=== PATIENT | female | born 1985 | race Caucasian/White ===

== ENCOUNTER 2016-11-04 04:30 | Observation (INO) | payer OTHER ==
[~2016-11-04] VITALS: Ht 170.2 cm; Wt 69.4 kg
[2016-11-04] MEDS ORDERED: PREN1SGL25 PO (04:56)
[2016-11-04] MEDS ORDERED: IRON65TA11 PO (04:56)
[2016-11-04 05:15] VITALS: BP 104/65
[2016-11-04] MEDS ORDERED: TERBUTALINE 1 MG/ML VIAL SUBQ ONE ×2 (05:32→06:15)
[2016-11-04] MEDS ORDERED: TERBUTALINE 1 MG/ML VIAL SUBQ SCH (05:40)
[2016-11-04 05:59] LABS: BASOPHILS # (AUTO) 0.1 K/uL (0.00-0.22); BASOPHILS % (AUTO) 0.6 % (0.0-2.0); EOSINOPHILS # (AUTO) 0.1 K/uL (0-0.4); EOSINOPHILS % (AUTO) 1.5 % (0.0-4.0); HEMATOCRIT 32.7 % (36-48); LYMPHOCYTES # (AUTO) 2.7 K/uL (2.5-16.5); LYMPHOCYTES % (AUTO) 30.1 % (20.5-51.1); MEAN CORPUSCULAR HEMOGLOBIN 31 pg (27-31); MEAN CORPUSCULAR HGB CONC 34 g/dL (33-37); MEAN CORPUSCULAR VOLUME 91 fL (80-94); MONOCYTES # (AUTO) 0.6 K/uL (0.8-1.0); MONOCYTES % (AUTO) 6.8 % (1.7-9.3); NEUTROPHILS # (AUTO) 5.4 K/uL (1.8-7.7); PLATELET COUNT (AUTO) 103 K/uL (140-450); RED CELL DISTRIBUTION WIDTH 13.4 % (11.6-13.7); WHITE BLOOD COUNT (AUTO) 8.9 K/uL (4.8-10.8)
[2016-11-04 06:17] LABS: INR 0.9 (0.8-1.2); PARTIAL THROMBOPLASTIN TIME 23.9 secs (22-35.6); PROTHROMBIN TIME 9.6 secs (10.8-13.4)
[2016-11-04 06:40] LABS: APPEARANCE,URINE CLOUDY (CLEAR); BILIRUBIN,URINE NEGATIVE (NEGATIVE); BLOOD, URINE NEGATIVE (NEGATIVE); COLOR,URINE YELLOW (YELLOW); LEUKOCYTE ESTERASE ,URINE NEGATIVE (NEGATIVE); NITRITE, URINE NEGATIVE (NEGATIVE); PH,URINE 7.5 (5.0-9.0); PROTEIN,URINE NEGATIVE (NEGATIVE); UGLUCOSE NEGATIVE (NEGATIVE); UROBILINOGEN,URINE 0.2 EU/dL (0.2 - 1)
[2016-11-04 07:03] LABS: D-DIMER 754 ng/ml (0-400)
[2016-11-04 07:25] LABS: BACTERIA,URINE None Seen /HPF (None Seen); RBC,URINE NONE SEEN /HPF (0-5); SQUAMOUS EPITHELIAL CELL,UR 0-3 (FEW) /LPF (0-3 (FEW)); URINE AMORPHOUS PHOSPHATES 1+ /HPF (None Seen); WBC,URINE 0-5 (RARE) /HPF (0-5)
[2016-11-04 07:51] LABS: FIBRINOGEN > 475 mg/dL (200-400)
[2016-11-04] MEDS ORDERED: BETAMETH ACET/BETAMETH NA PH 30 MG/5 ML VIAL IM ONE ×2 (08:05→20:08)
[2016-11-04] MEDS ORDERED: BETAMETH ACET/BETAMETH NA PH 30 MG/5 ML VIAL IM SCH (08:30)
--- NOTE | 2016-11-04 09:00 | NUR ---
PATIENT HAS BEEN SCREENED AND CATEGORIZED MODERATE NUTRITION RISK. PATIENT WILL BE SEEN WITHIN 3-5 DAYS OF ADMISSION. 11/06/16-11/08/[address]
[2016-11-04] MEDS: TERBUTALINE 2.5 MG TAB PO PRN ×2 (10:05→14:02)
[2016-11-04] MEDS ORDERED: TERBUTALINE 2.5 MG TAB ONE ×3 (10:09→21:04)
[2016-11-04] MEDS ORDERED: ALUMINUM HYD/MAG/SIMETHICONE 30 ML UDC PO PRN (14:10)
[2016-11-04] MEDS ORDERED: ALUMINUM HYD/MAG/SIMETHICONE 30 ML UDC ONE (14:19)
[2016-11-04] MEDS ORDERED: NIFEdipine 10 MG CAPLF ONE ×3 (17:54→18:34)
[2016-11-04] MEDS: NIFEdipine 10 MG CAPLF PO SCH ×2 (18:12→18:30)
[2016-11-04] MEDS ORDERED: NIFEdipine 10 MG CAPLF PO PRN (22:30)
== END 2016-11-04 21:00 | disposition home or self-care (01) ==
LOC: MLD 04:30
PROVIDERS: ADMIT Obstetrics & Gynecology; ATTEND Obstetrics & Gynecology
DX: O26.893 Other specified pregnancy related conditions, third trimester (principal); R12 Heartburn; Z3A.33 33 weeks gestation of pregnancy
CPT/HCPCS: 36415; 51702; 76815; 81001; 85025; 85379; 85384; 85610; 85730; 86886; 86900; 86901; 96372; G0378; J0702; J3105; Q0092

== ENCOUNTER 2016-12-12 05:50 | Observation (INO) | payer OTHER ==
[~2016-12-12] VITALS: Ht 170.2 cm; Wt 71.7 kg
[~2016-12-12 05:50] MED LIST: IRON65TA11 PO; PREN1SGL25 PO
[2016-12-12] MEDS ORDERED: ALUMINUM HYD/MAG/SIMETHICONE 30 ML UDC PO PRN (06:35)
[2016-12-12] MEDS ORDERED: FAMOTIDINE 20 MG TAB PO SCH (07:15)
== END 2016-12-12 15:35 | disposition home or self-care (01) ==
LOC: MFCC 05:50
PROVIDERS: ADMIT Obstetrics & Gynecology; ATTEND Obstetrics & Gynecology
DX: Z34.90 Encounter for supervision of normal pregnancy, unspecified, unspecified trimester (principal); Z3A.00 Weeks of gestation of pregnancy not specified
CPT/HCPCS: 76815; G0378; Q0092

== ENCOUNTER 2016-12-13 19:03 | Inpatient (IN) | payer OTHER ==
[~2016-12-13] VITALS: Ht 170.2 cm; Wt 71.7 kg
[2016-12-13] MEDS ORDERED: OXYTOCIN 20 UNITS/LR PREMIX 1,000 ML IV SCH (19:47)
[2016-12-13] MEDS ORDERED: NALBUPHINE 10 MG/ML AMP IVP PRN (19:50)
[2016-12-13] MEDS ORDERED: LACTATED RINGERS 1,000 ML IV SCH (20:20)
[2016-12-13 20:46] LABS: BASOPHILS % (AUTO) 0.7 % (0.0-2.0); EOSINOPHILS # (AUTO) 0.1 K/uL (0-0.4); EOSINOPHILS % (AUTO) 0.9 % (0.0-4.0); HEMATOCRIT 35.6 % (36-48); LYMPHOCYTES # (AUTO) 1.3 K/uL (2.5-16.5); LYMPHOCYTES % (AUTO) 22.7 % (20.5-51.1); MEAN CORPUSCULAR HEMOGLOBIN 31 pg (27-31); MEAN CORPUSCULAR HGB CONC 34 g/dL (33-37); MEAN CORPUSCULAR VOLUME 91 fL (80-94); MONOCYTES # (AUTO) 0.7 K/uL (0.8-1.0); MONOCYTES % (AUTO) 12.3 % (1.7-9.3); NEUTROPHILS # (AUTO) 3.8 K/uL (1.8-7.7); NEUTROPHILS % (AUTO) 63.4 % (42.2-75.2); PLATELET COUNT (AUTO) 110 K/uL (140-450); RED BLOOD CELL COUNT(AUTO) 3.91 MIL/uL (4.20-5.40); RED CELL DISTRIBUTION WIDTH 14.2 % (11.6-13.7); WHITE BLOOD COUNT (AUTO) 5.9 K/uL (4.8-10.8)
[2016-12-13 21:01] LABS: APPEARANCE,URINE HAZY (CLEAR); BILIRUBIN,URINE NEGATIVE (NEGATIVE); BLOOD, URINE NEGATIVE (NEGATIVE); COLOR,URINE YELLOW (YELLOW); LEUKOCYTE ESTERASE ,URINE TRACE (NEGATIVE); NITRITE, URINE NEGATIVE (NEGATIVE); PH,URINE 6.5 (5.0-9.0); PROTEIN,URINE TRACE (NEGATIVE); UGLUCOSE NEGATIVE (NEGATIVE)
[2016-12-13 21:04] LABS: AMPHETAMINE, URINE NEG. ng/ml (NEG <=1000); BARBITURATE, URINE NEG. ng/ml (NEG <=200); BENZODIAZEPINE, URINE NEG. ng/mL (NEG <=200); CANNABINOID, URINE NEG. ng/mL (NEG <=50); COCAINE, URINE NEG. ng/mL (NEG <=300); OPIATE, URINE NEG. ng/mL (NEG <=2000); PHENCYCLIDINE SCREEN,URINE NEG. ng/mL (NEG <=25)
[2016-12-13 21:07] LABS: BACTERIA,URINE 4+ /HPF (None Seen); RBC,URINE 0-5 /HPF (0-5)
[2016-12-13 21:08] LABS: CALCIUM OXALATE CRYSTALS,UR 0-3 /HPF (None Seen); MUCUS,URINE 1+ /LPF (None Seen)
[2016-12-13 21:09] LABS: PARTIAL THROMBOPLASTIN TIME 26.1 secs (22-35.6); PROTHROMBIN TIME 9.8 secs (10.8-13.4)
[2016-12-13 21:11] LABS: ALBUMIN 2.6 g/dL (3.4-5.0); ANION GAP 12.4 (8-16); CALCIUM 8.8 mg/dL (8.5-10.1); CARBON DIOXIDE 25.4 mmol/L (21-32); CREATININE 0.7 mg/dL (0.6-1.3); POTASSIUM 3.8 mmol/L (3.5-5.1); TOTAL BILIRUBIN 0.3 mg/dL (0.0-1.0); TOTAL PROTEIN, SERUM 6.4 g/dL (6.4-8.2)
[2016-12-13] MEDS ORDERED: ALUMINUM HYD/MAG/SIMETHICONE 30 ML UDC PO PRN (22:20)
[2016-12-13] MEDS ORDERED: ALUMINUM HYD/MAG/SIMETHICONE 30 ML UDC ONE (22:41)
[2016-12-13] MEDS ORDERED: FAMOTIDINE 20 MG TAB ONE (22:41)
[2016-12-13 23:35] VITALS: BP 97/67
[2016-12-14] MEDS ORDERED: ROPIVACAINE 0.2%/NS PREMIX 250 ML EPI ONE (02:00)
[2016-12-14] MEDS ORDERED: ROPIVACAINE 0.2%/NS PREMIX 250 ML EPI SCH (02:40)
[2016-12-14] MEDS ORDERED: OXYTOCIN 20 UNITS/LR PREMIX 1,000 ML IV ONE (03:02)
--- NOTE | 2016-12-14 06:52 | NUR ---
PATIENT HAS BEEN SCREENED AND CATEGORIZED LOW NUTRITION RISK. PATIENT WILL BE SEEN WITHIN 7 DAYS OF ADMISSION. 12/19/16 TOO BOYLE MS, RDN
[2016-12-14] MEDS ORDERED: OXYTOCIN 10 UNITS/ML VIAL ONE (08:12)
[2016-12-14] MEDS ORDERED: ACETAMINOPHEN 325 MG TAB PO PRN ×2 (18:50→18:55)
[2016-12-14] MEDS ORDERED: OXYTOCIN 20 UNITS/LR PREMIX 1,000 ML IV SCH (18:51)
[2016-12-14] MEDS ORDERED: MEASLES, MUMPS, AND RUBELLA 1 VIAL SQVAC PRN (18:55)
[2016-12-14] MEDS ORDERED: SODIUM PHOSPHATE 118 ML ENEM RC PRN (18:55)
[2016-12-14] MEDS: oxyCODONE/APAP 5/325 MG 1 TAB TAB PO PRN (19:04)
[2016-12-14] MEDS ORDERED: oxyCODONE/APAP 5/325 MG 1 TAB TAB ONE (19:10)
[2016-12-15] MEDS: oxyCODONE/APAP 5/325 MG 1 TAB TAB PO PRN ×4 (02:32→23:27)
[2016-12-15 08:01] LABS: BASOPHILS # (AUTO) 0.1 K/uL (0.00-0.22); BASOPHILS % (AUTO) 0.5 % (0.0-2.0); EOSINOPHILS # (AUTO) 0.1 K/uL (0-0.4); EOSINOPHILS % (AUTO) 0.9 % (0.0-4.0); HEMOGLOBIN 9.6 g/dL (12.0-16.0); LYMPHOCYTES # (AUTO) 2.5 K/uL (2.5-16.5); LYMPHOCYTES % (AUTO) 20.9 % (20.5-51.1); MEAN CORPUSCULAR HEMOGLOBIN 31 pg (27-31); MEAN CORPUSCULAR HGB CONC 34 g/dL (33-37); MEAN CORPUSCULAR VOLUME 91 fL (80-94); MONOCYTES % (AUTO) 8.5 % (1.7-9.3); NEUTROPHILS # (AUTO) 8.1 K/uL (1.8-7.7); NEUTROPHILS % (AUTO) 69.2 % (42.2-75.2); PLATELET COUNT (AUTO) 112 K/uL (140-450); RED BLOOD CELL COUNT(AUTO) 3.07 MIL/uL (4.20-5.40); RED CELL DISTRIBUTION WIDTH 14.1 % (11.6-13.7); WHITE BLOOD COUNT (AUTO) 11.8 K/uL (4.8-10.8)
[2016-12-15] MEDS: FAMOTIDINE 20 MG TAB PO SCH ×2 (10:12→21:00)
[2016-12-15] MEDS ORDERED: FERR325E14 BC (18:12)
[2016-12-15] MEDS ORDERED: ACET-9800 PO (18:14)
[2016-12-15] MEDS: BISACODYL 5 MG TABEC PO PRN (20:31)
[2016-12-16] MEDS: oxyCODONE/APAP 5/325 MG 1 TAB TAB PO PRN (09:28)
[2016-12-16] MEDS: FAMOTIDINE 20 MG TAB PO SCH (09:28)
[2016-12-16] MEDS: BISACODYL 5 MG TABEC PO PRN (09:32)
== END 2016-12-16 13:45 | disposition home or self-care (01) | DRG 560 ==
LOC: MFCC 19:03
PROVIDERS: ADMIT Obstetrics & Gynecology; ATTEND Obstetrics & Gynecology
PROC: 10E0XZZ Delivery of Products of Conception, External Approach (ICD-10-PCS; principal; 2016-12-14)
PROC: 10907ZC Drainage of Amniotic Fluid, Therapeutic from Products of Conception, Via Natural or Artificial Opening (ICD-10-PCS; 2016-12-14)
PROC: 00HU33Z Insertion of Infusion Device into Spinal Canal, Percutaneous Approach (ICD-10-PCS; 2016-12-14)
PROC: 3E0R3CZ (ICD-10-PCS; 2016-12-14)
DX: O80 Encounter for full-term uncomplicated delivery (principal); Z37.0 Single live birth; Z3A.39 39 weeks gestation of pregnancy
CPT/HCPCS: 36415; 59409; 76815; 80053; 80305; 81001; 85025; 85379; 85610; 85730; 86592; 86886; 86900; 86901; 87086; J2590; J2795; J7120; Q0092

== ENCOUNTER 2019-07-02 11:09 | Emergency (ER) | payer OTHER ==
[~2019-07-02] VITALS: Ht 170.2 cm; Wt 57.7 kg
[~2019-07-02 11:09] MED LIST changes: +ACET-9800 PO; +FERR-252 PO; +FERR325E14 BC; -IRON65TA11 PO
[2019-07-02 11:17] VITALS: BP 118/72
--- NOTE | 2019-07-02 11:22 | NUR ---
Patient ambulated to bed 5. RN evaluating patient at bedside.
--- NOTE | 2019-07-02 11:36 | NUR ---
Dr. Dolan is evaluating the patient at bedside.
--- NOTE | 2019-07-02 11:40 | NUR ---
C/O GENERALIZED BODY ACHES 5/10, COUGH, RUNNY NOSE X 1 WEEK. DENIES RECENT SICK CONTACTS, INJURY, FEVER/N/V. LUNG SOUNDS CAEBL, O2 SAT RA 97%. RR EVEN AND UNLABORED. BED IN LOW POSITION, SIDE RAIL UP X1.
[2019-07-02] MEDS ORDERED: ALBUTEROL SULFATE/IPRATROPIU 3 ML SOL IH ONE (11:50)
[2019-07-02] MEDS ORDERED: KETOROLAC 30 MG/ML VIAL IM ONE (11:50)
--- NOTE | 2019-07-02 11:54 | NUR ---
Breathing treatment administered by respiratory therapist at bedside.
[2019-07-02 12:34] VITALS: BP 118/72
--- NOTE | 2019-07-02 12:35 | NUR ---
Patient discharged with v/s stable. Written and verbal after care instructions given and explained. Patient alert, oriented and verbalized understanding of instructions. Ambulatory with steady gait. All questions addressed prior to discharge. ID band removed. Patient advised to follow up with PMD. Rx of ALBUTEROL, PROMETHAZINE AND IBUPROFEN given. Patient educated on indication of medication including possible reaction and side effects. Opportunity to ask questions provided and answered.
== END 2019-07-02 12:36 | disposition home or self-care (01) ==
LOC: MED 11:09
DX: B34.9 Viral infection, unspecified (principal); Z79.899 Other long term (current) drug therapy
CPT/HCPCS: 71045; 94640; 96372; 99283; J1885; Q0092

== ENCOUNTER 2021-12-28 18:55 | Emergency (ER) | payer OTHER ==
[~2021-12-28] VITALS: Ht 170.2 cm; Wt 58.1 kg
[2021-12-28 19:01] VITALS: BP 132/93
--- NOTE | 2021-12-28 19:15 | NUR ---
PATIENT BEING EVALUATED IN C BY MALIHA MELISSA
--- NOTE | 2021-12-28 19:18 | NUR ---
36/F PRESENTS TO ED WITH C/O INTERMITTENT RIGHT EAR PAIN AND CONGESTION AND PRODUCTIVE COUGH X3 DAYS. PATIENT REPORTS TAKING AMOXICILLIN GIVEN TO HER BY HER MOM WITH NO RELIEF. PATIENT DENIES SOB, CP.
[2021-12-28] MEDS ORDERED: ALBUTEROL SULFATE/IPRATROPIU 3 ML SOL IH ONE (19:20)
[2021-12-28] MEDS ORDERED: PRED20TA5 PO (19:44)
[2021-12-28] MEDS ORDERED: ALBU0.0912 IH (19:44)
[2021-12-28] MEDS ORDERED: PROM118S5 PO (19:44)
[2021-12-28] MEDS ORDERED: NITR100C7 PO (19:55)
--- NOTE | 2021-12-28 19:55 | NUR ---
Respiratory Therapist at chairside for respiratory intervention.
[2021-12-28 20:25] VITALS: BP 120/78
--- NOTE | 2021-12-28 20:25 | NUR ---
Patient discharged with v/s stable. Written and verbal after care instructions given and explained. Patient alert, oriented and verbalized understanding of instructions. Ambulatory with steady gait. All questions addressed prior to discharge. ID band removed. Patient advised to follow up with PMD. Rx of PROVENTIL HFA MDI, MACROBID, DELTASONE, PROMETHAZINE DM given. Patient educated on indication of medication including possible reaction and side effects. Opportunity to ask questions provided and answered.
== END 2021-12-28 20:25 | disposition home or self-care (01) ==
LOC: MED 18:55
DX: J40 Bronchitis, not specified as acute or chronic (principal); H92.01 Otalgia, right ear
CPT/HCPCS: 81002; 81025; 94640; 99285

== ENCOUNTER 2022-09-01 09:29 | Emergency (ER) | payer OTHER ==
[~2022-09-01] VITALS: Ht 170.2 cm; Wt 59.0 kg
[~2022-09-01 09:29] MED LIST changes: +ALBU0.0912 IH; +NITR100C7 PO; +PRED20TA5 PO; +PROM118S5 PO
--- NOTE | 2022-09-01 09:37 | NUR ---
PT AMBULATED TO ER BED 4
[2022-09-01 09:43] VITALS: BP 111/78
[2022-09-01] MEDS ORDERED: KETOROLAC 60 MG/2 ML VIAL IM ONE (09:50)
--- NOTE | 2022-09-01 10:55 | NUR ---
PT LEFT WITHOUT D/C PAPERS. RX OF FLEXERIL, LIDODERM PATCH AND NAPROXEN SENT TO [facility]
[2022-09-01] MEDS ORDERED: NAPR-54 PO (10:59)
[2022-09-01] MEDS ORDERED: LID5T TP (10:59)
[2022-09-01] MEDS ORDERED: CYCL-711 PO (10:59)
== END 2022-09-01 10:55 | disposition home or self-care (01) ==
LOC: MED 09:29
DX: S16.1XXA Strain of muscle, fascia and tendon at neck level, initial encounter (principal); Z79.899 Other long term (current) drug therapy; X58.XXXA Exposure to other specified factors, initial encounter; Y93.89 Activity, other specified; Y92.89 Other specified places as the place of occurrence of the external cause; Y99.8 Other external cause status
CPT/HCPCS: 81025; 96372; 99283; J1885

== ENCOUNTER 2023-08-21 22:43 | Emergency (ER) | payer OTHER ==
[~2023-08-21] VITALS: Ht 170.2 cm; Wt 63.5 kg
[~2023-08-21 22:43] MED LIST changes: +CYCL-711 PO; +LID5T TP; +NAPR-337 PO
[2023-08-21 23:08] VITALS: BP 100/71; PULSE 69; RESP 18; TEMP 97; O2SAT 99
[2023-08-22] MEDS ORDERED: HYDR-5071 PO (02:05)
[2023-08-22 02:15] VITALS: BP 100/71; PULSE 69; RESP 18; TEMP 97; O2SAT 99
== END 2023-08-22 02:15 | disposition home or self-care (01) ==
LOC: MED 22:43
DX: K43.9 Ventral hernia without obstruction or gangrene (principal); Z79.899 Other long term (current) drug therapy
CPT/HCPCS: 81025; 99283